=== PATIENT | female | born 1990 | race Caucasian/White ===

== ENCOUNTER 2024-07-30 08:32 | Outpatient (CLI) | payer BC, SELFPAY ==
--- OUTSIDE RECORDS SUMMARY | 2024-07-29 16:39 | XMS_ITS | Clinical Summary ---
Author Organization [employer] [facility] Address [place], [place] [address] Care Team Providers Care Cad Intern Name Role Phone Pcp, No Primary Care Provider Unavailabl e Allergies Active Allergy Reactions Criticality Noted Date Comments Amoxicillin Hives 05/29/2011 Penicillins Hives 05/29/2011 Medications metroNIDAZOLE 0.75 % creamIndication s:Perioral dermatitis Apply topically to affected area(s) 2 times daily. 45 g 8 Active Active Problems Problem Noted Date Diagnosed Date Tobacco use disorder 12/26/2014 Family planning 03/21/2011 Immunizations Name Administration Dates Next Due Tdap 01/26/2008 Family History Medical History Relation Name Comments Good Health Father Good Health Mother Relation Name Status Comments Father Alive Mother Alive Social History Tobacco Use Types Packs/Day Years Used Date Smoking Tobacco: Former Smokeless Tobacco: Never Tobacco Cessation:Counseling Given: Yes Alcohol Use Standard Drinks/Week Comments Yes 0 (1 standard drink = 0.6 oz pur e alcohol) occasionally Comments No Sex and Gender Information Value Date Recorded Sex Assigned at Not on file 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 Gender Identity Not on file Sexual Orientation Not on file Occupation Industry Job Start Date Job End Date student Not on file Not on file Not on file Obstetrics History Para Term AB IAB SAB Ectopic Multiple Livin g Live Births 0 0 0 0 0 0 0 0 0 0 Last Filed Vital Signs Vital Sign Reading Time Taken Comments Blood Pressure 120/74 12/11/2017 2:43 PM CDT Pulse 88 12/11/2017 2:43 PM CDT Temperature 37.5 C (99.5 F) 12/26/2014 3:33 PM CDT Respiratory Rate 20 12/26/2014 3:33 PM CDT Oxygen Saturation 100% 05/29/2011 9:48 PM CDT Inhaled Oxygen Concentration - - Weight 60.8 kg (134 lb) 12/11/2017 2:43 PM CDT Height 159.4 cm (5' 2.75) 12/11/2017 2:43 PM CD T Body Mass Index 23.93 12/11/2017 2:43 PM CDT Plan of Treatment Health Maintenance Due Date Last Done Comments HIV for age 15-65 2005 Hepatitis C screening for age 18-79 2008 Tetanus booster 01/25/2018 01/26/2008 Depression screening for age 12+ 08/08/2018 08/08/2017 BMI (ht and wt on same day) for age 18+ 12/11/2018 12/11/2017, 08/08/2017 COVID-19 vaccine series (2023- season) 2024 Influenza for age 9-49 03/28/2024 Pap test for age 21-65 05/23/2024 , 05/23/2021, 05/18/2018, Additional history exists Tdap Completed 01/26/2008 Pneumococcal series for age 6-49 Aged Out No longer eligible based on patient's age to complete this topic Procedures Procedure Name Priority Date/Time Associated Diagnosis Comments HPV HIGH RISK Routine 05/23/2021 2:00 PM CDT from Last 3 Months or Most Recently Relevant to Health Maintenance Results * HPV HIGH RISK (05/23/2021 2:00 PM CDT) TYPE 16 Negative Negative 05/28/2021 6:27 PM CDT [facility] TYPE 18 Negative Negative 05/28/2021 6:27 PM CDT [facility] OTHER HIGH RISK TYPES Negative Negative 05/28/2021 6:27 PM CDT [facility] Other (Cervical/Vagina l) 05/23/2021 2:00 PM CDT 05/25/2021 9:28 AM CDT Narrative [facility] - 05/28/2021 6:27 PM CDT HPV types 16, 18, 31, 33, 35, 39, 45, 51, 52, 56, 58, 59, 66 and 68 DNA were undetectable or below the pre-set threshold. Methodology: Janet Candy 4800 HPV Test us Emma Ewing MD MICROBIOLOGY Final Resu lt [facility] [address] [place] [address], [place] from Last 3 Months or Most Recently Relevant to Health Maintenance Insurance [facility] Care Teams Cad Intern Relationship Specialty Start Date End Date Pcp, No . PCP - General 11/25/17
--- OUTSIDE RECORDS SUMMARY | 2024-07-29 16:39 | XMS_ITS | Referral Summary ---
Author Organization [facility] Address [address] [place] [address]. [place] [address] Care Team Providers Care Medical Laboratory Assistant Name Role Phone Unavailable Primary Care Provider Unavailabl e Social History Tobacco Use Types Packs/Day Years Used Date Smoking Tobacco: Never Assessed Adolescent Education Answer Date Record ed Getting School Help Needed Not on file 04/19 Comments No Sex and Gender Information Value Date Recorded Sex Assigned at Not on file Legal Sex Female 9:19 AM CDT Gender Identity Not on file Sexual Orientation Not on file Plan of Treatment Not on file Insurance BLUE [facility]
--- OUTSIDE RECORDS SUMMARY | 2024-07-29 16:39 | XMS_ITS | Clinical Summary ---
Author Organization [facility] Address [address] [place] [address]. [place] [address] Care Team Providers Care Shuttle Veneering Supervisor Name Role Phone Unavailable Primary Care Provider [...] of Treatment Not on file Insurance BLUE [facility]
--- NOTE | 2024-07-30 08:45 | CRLHL7_ITS ---
For Patients: As a result of the Cures Act, medical imaging exams and procedure reports are released immediately into your electronic medical record. You may view this report before your referring provider. If you have questions, please contact your health care provider. DIGITAL DIAGNOSTIC LEFT MAMMOGRAM USING TOMOSYNTHESIS AND COMPUTER-AIDED DETECTION LEFT BREAST ULTRASOUND CLINICAL HISTORY: LEFT breast lump. COMPARISON: None. TECHNIQUE: Digital LEFT mammogram in two projections with computer-aided detection. Tomosynthesis was used in this interpretation. Real-time ultrasound imaging of LEFT breast with imaging documentation. BREAST COMPOSITION: The breasts are heterogeneously dense, which may obscure small masses. FINDINGS: 3D CC/MLO LEFT breast mammogram images submitted. No suspicious mass or architectural distortion. No suspicious calcifications or adenopathy. Targeted LEFT breast ultrasound performed in the area of concern at 5 o`clock 3 cm from the nipple. Normal dense fibroglandular tissue is present. No fibrocystic change or mass. IMPRESSION: No suspicious findings. No evidence of malignancy. RECOMMENDATIONS: Age-appropriate screening mammography. A lay language report of this examination will be provided to the patient. BI-RADS Category 1: Negative Dictated by Negro Bella MD @ 07/30/2024 9:38:07 AM jj/Dictated by: Negro Bella MD @ 07/30/2024 9:38:00 AM (Electronically Signed)
--- NOTE | 2024-07-30 09:15 | CRLHL7_ITS ---
For Patients: As a result of the Cures Act, medical imaging exams and procedure reports are released immediately into your electronic medical record. You may view this report before your referring provider. If you have questions, please contact your health care provider. SEE DIGITAL DIAGNOSTIC LEFT MAMMOGRAM PERFORMED SAME DAY CRL:[email or web address] lama/Dictated by: Negro Bella MD @ 07/30/2024 9:38:00 AM (Electronically Signed)
== END 2024-07-30 08:33 | disposition home or self-care (01) ==
LOC: MAMMO 08:33
PROVIDERS: PCP Obstetrics & Gynecology; Visit Provider Advanced Practice Midwife
DX: N63.20 Unspecified lump in the left breast, unspecified quadrant (principal)
CPT/HCPCS: 76642; 77065; G0279